=== PATIENT | male | born 1965 | race American Indian/Alaskan Native ===

== ENCOUNTER 2020-06-09 15:58 | Emergency (ER) | payer SELFPAY ==
[2020-06-09 16:12] VITALS: BP 150/83
--- NOTE | 2020-06-09 16:35 | Event Note ---
ED Screening Note Date of service: 06/09/20 Time: 16:32 ED Screening Note: 54-year-old male patient with history of diabetes presents to the emergency department with complaints of nontraumatic left lower leg pain starting yesterday. No known history of venous embolism. No fever. No chest pain or shortness of breath. General: Awake, appropriately interactive, no acute distress. Neck: Supple. Full range of motion intact. Cardiovascular: Normal peripheral perfusion. Pulmonary: No respiratory distress. Patient is speaking normally without use of accessory muscles. Skin: No apparent rashes or lesions. Neurological: No facial asymmetry. Speech is clear. Follows commands. Patient is alert and oriented. Musculoskeletal: Tenderness to palpation along the lateral aspect of the left lower leg without overlying warmth, erythema, or crepitus. Dorsalis pedis pulse is difficult to appreciate; the left foot appears well perfused, normal temperature, brisk capillary refill, motor/sensory function grossly intact. Psych: Cooperative. Appropriate mood and affect. I have greeted and performed a focused rapid initial assessment of this patient. A comprehensive ED assessment and evaluation of the patient, analysis of all test results, and completion of the medical decision-making process will be conducted by additional ED providers. This initial assessment/diagnostic orders/clinical plan/treatment(s) is/are subject to change based on patients health status, clinical progression and re-assessment. Further treatment and workup at subsequent clinical provider's discretion. Patient/guardian urged not to elope from the ED as their condition may be serious if not clinically assesse d and managed.
[2020-06-09 16:48] LABS: Basophils # (Auto) 0.1 K/mm3 (0.0-0.1); Basophils % (Auto) 0.9 % (0.0-1.8); Eosinophils # (Auto) 0.3 K/mm3 (0.0-0.4); Eosinophils % (Auto) 2.9 % (0.0-4.3); Lymphocytes # (Auto) 1.9 K/mm3 (1.2-5.4); Lymphocytes % (Auto) 21.3 % (13.4-35.0); Mean Corpuscular HGB Conc 34 % (32-34); Mean Corpuscular Volume 78 fl (84-94); Monocytes # (Auto) 0.6 K/mm3 (0.0-0.8); Platelet Count 345 K/mm3 (140-440); Red Blood Count 5.65 M/mm3 (3.65-5.03); Red Cell Distribution Width 14.5 % (13.2-15.2)
[2020-06-09 17:13] LABS: Alanine Aminotransferase 10 units/L (7-56); Albumin 3.7 g/dL (3.9-5); Blood Urea Nitrogen 10 mg/dL (9-20); Calcium 9.6 mg/dL (8.4-10.2); Hemolysis Index 4
[2020-06-09 17:19] LABS: BUN/Creatinine Ratio 14
--- NOTE | 2020-06-09 18:16 | Vascular Lab Report ---
DUPLEX DOPPLER LOWER EXTREMITY VEINS, LEFT INDICATION / CLINICAL INFORMATION: nontraumatic left lower leg pain. TECHNIQUE: Duplex doppler imaging was performed through the veins of the left lower extremity using venous compr ession and other maneuvers. COMPARISON: None available. FINDINGS: LEFT COMMON FEMORAL VEIN: Negative. LEFT FEMORAL VEIN: Negative. LEFT POPLITEAL VEIN: Negative. LEFT CALF VEINS: Negative. ADDITIONAL FINDINGS: None. IMPRESSION: 1. No sonographic evidence for DVT in the left lower extremity. Signer Name: Tho Reed MD Signed: 06/09/2020 6:11 PM Workstation Name: [id number]
[2020-06-09] MEDS ORDERED: ACETAMINOPHEN 500 MG TAB PO ONE (19:05)
[2020-06-09] MEDS ORDERED: NAPROXEN 500 MG TAB PO ONE (19:05)
[2020-06-10] MEDS ORDERED: GABAPENTIN 300 MG CAP PO ONE (01:10)
--- NOTE | 2020-06-10 01:15 | Emergency Department Report ---
ED Extremity Problem HPI - General Chief complaint: Extremity Problem,Nontraumatic Stated complaint: LEFT LEG PAIN Time Seen by Provider: 06/09/20 20:22 Source: patient Mode of arrival: Wheelchair Limitations: No Limitations - History of Present Illness Initial comments: Patient is a 54-year-old -Togolese male with a history of hypertension, zew-gnripsx-infeuhyti diabetes and chronic diabetic neuropathy who presents to the ED with complaint of acute exacerbation of his chronic bilateral lower extremity neuropathy characterized by bilateral lower extremity tingling and painful sensation worse at night especially in the left lower leg and left foot for the last 2 days. Patient states that he did not sleep at all 24 hours ago because of worsening left lower leg and foot tingling and burning sensation. Patient states that this is typical of his chronic neuropathic pain although he admits to not taking any medications at home for pain. Patient denies chest pain, shortness of breath, fever, chills, nausea, vomiting, dizziness, syncope, traumatic injury, swelling, numbness and weakness of lower extremities bilaterally, fall or heavy lifting. MD Complaint: extremity pain (Left lower leg and foot pain, tingling sensation), other (chronic low back pain) -: Sudden, days(s) (2) Location: bilateral lower extremity, other (Left foot) History of Same: Yes (Chronic diabetic neuropathy) -: Yes arthralgia, No fever, No associated chest pain Radiation: distal Severity scale (0 -10): 3 Quality: burning, aching, sharp Consistency: constant Improves with: nothing Worsens with: nothing Associated Symptoms: denies other symptoms, arthralgias. denies: chest pain, shortness of breath, fever, myalgias, rash - Related Data Previous Rx's Medication Instructions Recorded Last Taken Type Gabapentin 300 mg PO Q12H #30 cap 06/10/20 Unknown Rx Naproxen 500 mg PO Q12H PRN #30 tablet 06/10/20 Unknown Rx Allergies Allergy/AdvReac Type Severity Reaction Status Date / Time No Known Allergies Allergy Unverified 06/09/20 16:07 ED Review of Systems ROS: Stated complaint: LEFT LEG PAIN Other details as noted in HPI Constitutional: denies: chills, fever Eyes: denies: eye pain, eye discharge, vision change ENT: denies: ear pain, throat pain Respiratory: denies: cough, shortness of breath, wheezing Cardiovascular: denies: chest pain, palpitations Endocrine: no symptoms reported Gastrointestinal: denies: abdominal pain, nausea, diarrhea Genitourinary: denies: urgency, dysuria Musculoskeletal: back pain (Low back pain), arthralgia (Bilateral lower extremity pain, worse in the left lower leg and foot). 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 - Social History Smoking Status: Never Smoker Substance Use Type: None - Medications Home Medications: Home Medications Medication Instructions Recorded Confirmed Last Taken Type Gabapentin 300 mg PO Q12H #30 cap 06/10/20 Unknown Rx Naproxen 500 mg PO Q12H PRN #30 tablet 06/10/20 Unknown Rx ED Physical Exam - General Limitations: No Limitations General appearance: alert, in no apparent distress - Head Head exam: Present: atraumatic, normocephalic, normal inspection - Eye Eye exam: Present: normal appearance, PERRL, EOMI Pupils: Present: normal accommodation - ENT ENT exam: Present: normal exam, normal orophraynx, mucous membranes moist, TM's normal bilaterally, normal external ear exam - Neck Neck exam: Present: normal inspection, full ROM - Respiratory Respiratory exam: Present: normal lung sounds bilaterally. Absent: respiratory distress, wheezes, rales, rhonchi, chest wall tenderness, accessory muscle use, decreased breath sounds, prolonged expiratory - Cardiovascular Cardiovascular Exam: Present: regular rate, normal rhythm, normal heart sounds. Absent: systolic murmur, diastolic murmur, rubs, gallop - GI/Abdominal GI/Abdominal exam: Present: soft, normal bowel sounds. Absent: tenderness, guarding, hyperactive bowel sounds, hypoactive bowel sounds, organomegaly - Extremities Exam Extremities exam: Present: normal inspection, full ROM, tenderness (Palpable mild diffuse left lower leg and left foot tenderness), normal capillary refill, other (Distal pedal pulses are intact bilaterally). Absent: pedal edema, joint swelling, calf tenderness - Back Exam Back exam: Present: normal inspection, full ROM. Absent: tenderness, CVA tenderness (R), CVA tenderness (L), muscle spasm, paraspinal tenderness, vertebral tenderness - Neurological Exam Neurological exam: Present: alert, oriented X3, CN II-XII intact, normal gait, reflexes normal - Psychiatric Psychiatric exam: Present: normal affect, normal mood - Skin Skin exam: Present: warm, dry, intact, normal color. Absent: rash ED Course Vital Signs 06/09/20 16:07 Temperature 98.5 F Pulse Rate 86 Respiratory 18 Rate Blood Pressure 150/83 O2 Sat by Pulse 98 Oximetry ED Medical Decision Making - Lab Data Result diagrams: 06/09/20 16:38 06/09/20 16:38 - Radiology Data Radiology results: report reviewed, image reviewed [facility] [address] [place] [address] Vascular Lab Report Signed Patient: SANDEE ACEVEDO MR#: [id number] : 1965 Acct:[id number] Age/Sex: 54 / M ADM Date: 06/09/20 Loc: ED Attending Dr: Ordering Physician: SAVITA EDDY Date of Service: 06/09/20 Procedure(s): VL venous duplex LE LT Accession Number(s): [id number] cc: SAVITA EDDY DUPLEX DOPPLER LOWER EXTREMITY VEINS, LEFT INDICATION / CLINICAL INFORMATION: nontraumatic left lower leg pain. TECHNIQUE: Duplex doppler imaging was performed through the veins of the left lower extremity using venous compression and other maneuvers. COMPARISON: None available. FINDINGS: LEFT COMMON FEMORAL VEIN: Negative. LEFT FEMORAL VEIN: Negative. LEFT POPLITEAL VEIN: Negative. LEFT CALF VEINS: Negative. ADDITIONAL FINDINGS: None. IMPRESSION: 1. No sonographic evidence for DVT in the left lower extremity. Signer Name: Tho Reed MD Signed: 06/09/2020 6:11 PM Workstation Name: [id number] Transcribed By: VITA Dictated By: Tho Reed MD Electronically Authenticated By: Tho Reed MD Signed Date/Time: 06/09/201810 DD/ 10 TD/TT: - Medical Decision Making This is a 54-year-old -Togolese male with a history of hypertension, awz-[id number] diabetes and chronic diabetic neuropathy who presents to the ED with complaint of acute exacerbation of his chronic bilateral lower extremity neuropathy characterized by bilateral lower extremity tingling and painful sensation worse at night especially in the left lower leg and left foot for the last 2 days. Patient states that that the pain is typical of his chronic neuropathic pain although he admits to not taking medications. In the ED, patient is alert and oriented x3 and is not in any distress. Lab test results were reviewed and are all nonactionable. Left lower extremity Doppler ultrasound showed no sonographic evidence of DVT. Physical exam is unremarkable with distal pedal pulses intact bilaterally. Patient was treated for pain in the ED and based on the patient's history and physical exam findings, negative lab test results as well as imaging report, patient symptoms are likely due to exacerbation of his chronic neuropathy causing burning sensation in the lower extremities bilaterally. Patient was therefore discharged home on medications and advised to follow-up with his primary care physician in 24 to 48 hours for reevaluation or return to the ED immediately if symptoms get worse. Patient was also advised to follow-up with the electrical project manager as previously scheduled. - Differential Diagnosis Chronic neuropathy; chronic pain; DVT; cellulitis; tendinitis; sciatica Critical care attestation.: If time is entered above; I have spent that time in minutes in the direct care of this critically ill patient, excluding procedure time. ED Disposition Clinical Impression: Chronic painful diabetic neuropathy Disposition: TO HOME OR SELFCARE Is pt being admited?: No Does the pt Need Aspirin: No Condition: Stable Instructions: Diabetes Mellitus Type 2 in Adults (ED), Diabetes Mellitus and Foot Care, Peripheral Neuropathy, Type 2 Diabetes Mellitus, Self Care, Adult, Trsv-ki-Ntiv, Diabetic Neuropathy Additional Instructions: All lab test results were reviewed and are all nonactionable. Left lower leg Doppler ultrasound showed no sonographic evidence of DVT. Therefore your symptoms are likely due to neuropathic pain from chronic diabetes disease. Therefore take medication as needed with food, drink plenty of fluids and follow-up with your primary care physician in 5 to 7 days for reevaluation. Consider following up with the electrical project manager as previously scheduled. Prescriptions: Gabapentin 300 mg PO Q12H #30 cap Naproxen 500 mg PO Q12H PRN #30 tablet PRN Reason: Pain , Severe (7-10) Referrals: [facility] [Provider Group] - 3-5 Days Time of Disposition: 01:22 Print Language: URDU
== END 2020-06-10 01:55 | disposition home or self-care (01) ==
LOC: ED 15:58
DX: E11.40 Type 2 diabetes mellitus with diabetic neuropathy, unspecified (principal); I10 Essential (primary) hypertension; Z79.899 Other long term (current) drug therapy; Z98.890 Other specified postprocedural states
CPT/HCPCS: 36415; 80053; 85025

== ENCOUNTER 2021-01-13 12:37 | Emergency (ER) | payer SELFPAY ==
[2021-01-13 12:42] VITALS: BP 144/105
[2021-01-13] MEDS ORDERED: KETOROLAC 30 MG/1 ML INJ IV ONE (13:00)
[2021-01-13] MEDS ORDERED: SODIUM CHLORIDE 0.9% 1000 ML 1,000 ML IV ONE ×2 (13:00)
--- NOTE | 2021-01-13 13:22 | Emergency Department Report ---
ED Extremity Problem HPI - General Chief complaint: Extremity Problem,Nontraumatic Stated complaint: NUMBNESS/TINGLING LEGS Time Seen by Provider: 01/13/21 12:46 Source: patient Mode of arrival: Wheelchair Limitations: No Limitations - History of Present Illness Initial comments: Patient is a 55-year-old F [place] male with a past medical history of hy pertension and diabetes who is presenting with numbness and tingling in his bilateral shins ankles and feet. This is been present for the past 2 to 3 days. Patient states his blood glucose levels have been running higher than normal. 2 weeks ago the patient was out of his medications and has been restarted on his medications after picking up refills. Denies nausea vomiting fevers chills cough cold congestion. Patient states there is no back pain or bowel or bladder dysfunction. Denies any significant swelling to the calf. Does have chronic swelling in his ankles which is stable. There is been no trauma. Patient states he has had these symptoms in the past and although he does not use the word neuropathy this is documented on previous visits. - Related Data Previous Rx's Medication Instructions Recorded Last Taken Type Gabapentin 300 mg PO Q12H #60 cap 01/13/21 Unknown Rx Naproxen 500 mg PO Q12H PRN #14 tablet 01/13/21 Unknown Rx Allergies Allergy/AdvReac Type Severity Reaction Status Date / Time No Known Allergies Allergy Unverified 06/09/20 16:07 ED Review of Systems ROS: Stated complaint: NUMBNESS/TINGLING LEGS Other details as noted in HPI Comment: All other systems reviewed and negative ED Past Medical Hx - Past Medical History Previous Medical History?: Yes Hx Hypertension: Yes Hx Diabetes: Yes Additional medical history: Neuropathy - Surgical History Past Surgical History?: Yes Additional Surgical History: 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 - Social History Smoking Status: Never Smoker Substance Use Type: None - Medications Home Medications: Home Medications Medication Instructions Recorded Confirmed Last Taken Type Gabapentin 300 mg PO Q12H #60 cap 01/13/21 Unknown Rx Naproxen 500 mg PO Q12H PRN #14 tablet 01/13/21 Unknown Rx ED Physical Exam - General Limitations: No Limitations General appearance: alert, in no apparent distress - Head Head exam: Present: atraumatic, normocephalic - Eye Eye exam: Present: normal appearance - ENT ENT exam: Present: mucous membranes moist - Neck Neck exam: Present: normal inspection - Respiratory Respiratory exam: Present: normal lung sounds bilaterally. Absent: respiratory distress, wheezes, rales, rhonchi - Cardiovascular Cardiovascular Exam: Present: regular rate, normal rhythm, normal heart sounds. Absent: systolic murmur, diastolic murmur, rubs, gallop - GI/Abdominal GI/Abdominal exam: Present: soft, normal bowel sounds. Absent: distended, tenderness, guarding, rebound - Rectal Rectal exam: Present: deferred - Extremities Exam Extremities exam: Present: normal inspection, full ROM, normal capillary refill, pedal edema. Absent: tenderness, calf tenderness - Back Exam Back exam: Present: normal inspection - Neurological Exam Neurological exam: Present: alert, oriented X3 - Psychiatric Psychiatric exam: Present: normal affect, normal mood - Skin Skin exam: Present: warm, dry, intact, normal color. Absent: rash ED Course Vital Signs 01/13/21 12:40 Temperature 98 F Pulse Rate 84 Respiratory 16 Rate Blood Pressure 144/105 [Left] O2 Sat by Pulse 98 Oximetry ED Medical Decision Making - Medical Decision Making Patient with a likely exacerbation of his diabetic neuropathy. Patient's blood glucose was 300. Patient does not appear ill and did not have a major concern for the patient being in DKA. Patient given 2 L of fluid to help stabilize his blood glucose levels. I will start the patient on a dose of Toradol for the neuropathic pain is discharged the patient with gabapentin. Patient stable for discharge after receiving IV fluids. Critical care attestation.: If time is entered above; I have spent that time in minutes in the direct care of this critically ill patient, excluding procedure time. ED Disposition Clinical Impression: Diabetic neuropathy Disposition: 01 HOME / SELF CARE / HOMELESS Is pt being admited?: No Does the pt Need Aspirin: No Condition: Stable Instructions: Diabetes Mellitus Type 2 in Adults (ED), Peripheral Neuropathy Prescriptions: Gabapentin 300 mg PO Q12H #60 cap Naproxen 500 mg PO Q12H PRN #14 tablet PRN Reason: Pain , Severe (7-10) Referrals: PRIMARY CARE, [Primary Care Provider] - 3-5 Days Time of Disposition: 13:21
== END 2021-01-13 14:55 | disposition home or self-care (01) ==
LOC: ED 12:37
DX: E11.40 Type 2 diabetes mellitus with diabetic neuropathy, unspecified (principal); I10 Essential (primary) hypertension
CPT/HCPCS: 82962; 96361; 96374; 99282; J1885; J7030